=== PATIENT | male | born 1950 | race Caucasian/White ===

== ENCOUNTER → 2020-05-01 13:23 | Outpatient (BNVA) | payer MEDICARE, SELFPAY | PROVIDERS: PCP Internal Medicine; Visit Provider Internal Medicine | DX: I21.11 ST elevation (STEMI) myocardial infarction involving right coronary artery (principal); I25.10 Atherosclerotic heart disease of native coronary artery without angina pectoris; I48.0 Paroxysmal atrial fibrillation; I10 Essential (primary) hypertension | CPT/HCPCS: 93005; 99202 ==

== ENCOUNTER → 2020-05-30 09:24 | Outpatient (REF) | payer MEDICARE, SELFPAY ==
--- NOTE | 2020-05-30 09:31 | CA_ITS ---
Transthoracic Echocardiogram Patient (Last, First, Middle): Ambrocio Rooney, Gender: Male Date of : 1950 Age: 69 Procedure Date: 05/30/2020 Procedure Type: Transthoracic Echocardiogram Location: OP Height: 162.56 cm Weight: 61.69 kg BSA: 1.66 m2 Heart Rate: bpm BP: 172 / 75 mmHg Nurse Companion: VENTURA Referring MD: Edgar Butler MD Stock Receiver: Raz Lyon MD Symptoms: I21.11 - ST elevation (STEMI) myocardial infarction involving right coronary artery Study Quality: Fair ECG Rhythm: Sinus Conclusions: - Normal study Findings Left Ventricle Normal left ventricular size, thickness, and systolic function. The visually estimated ejection fraction is between 60-65%. Spectral Doppler is indicative of an impaired relaxation filling pattern. E/E prime ratio is <8, consistent with normal filling pressures. Evidence suggests grade I (mild) diastolic dysfunction. Right Ventricle Normal right ventricular cavity size and systolic function. Atria Both atria are normal in size. There is no evidence of interatrial shunt. Aortic Valve Normal aortic valve structure and function. There is no aortic valve stenosis. There is no aortic valve regurgitation. Mitral Valve Normal mitral valve structure and function. There is no mitral valve regurgitation. There is no mitral valve stenosis. Pulmonic Valve The pulmonic valve is likely normal. Tricuspid Valve Normal tricuspid valve structure. There is trace tricuspid valve regurgitation. The right ventricular systolic pressure is normal. The right ventricular systolic pressure is 27 mmHg. Normal right atrial pressure. There is no evidence of pulmonary hypertension. Great Vessels All visible segments of the aorta are normal in size. The pulmonary artery was not well visualized. Venous The inferior vena cava is normal in size and collapses greater than 50% with inspiration. Pericardium/Pleural There is no evidence of pericardial effusion. Prior Study Comparison No prior study available for comparison. Measurements M-Mode Liner Measurements Normals - Women/Men AOV Cusps: 2.10 1.5-2.6 cm/m2 2D Linear Measurements IVSd: 0.93 0.6-0.9/0.6-1.0 cm LVIDd: 4.32 3.9-5.3/4.2-5.9 cm LVIDd Index: 2.60 2.4-3.2/2.2-3.1 cm/m2 LVIDs: 2.62 2.0-3.6 cm LVPWd: 0.96 0.7-1.1 cm Ao Root: 2.60 2.1-3.5 cm LA Diam: 3.00 2.7-3.8/3.0-4.0 cm LAIDs Index: 1.81 1.5-2.3 cm/m2 LV Mass: 166.06 67-162/88-224 g LV Mass Index: 100.04 43-95/49-115 g/m2 LVOT Diam: 2.00 3.0+(-)1.3 cm 2D Systolic Function EF 4C: 63.80 >55% EF 2C: 59.60 >55% EF BiP: 61.70 >55% Mitral Valve MV Pk E: 0.49 MV PK A: 0.54 MV Decel Time: 444.00 E/A: 0.90 E'Lateral: 8.49 E'Medial: 5.77 E/E' Med: 8.50 E/E' Lat: 5.80 PHT: 130.00 MVA PHT: 1.69 Decel Terrell: 1.10 Aortic Valve AoV Pk Navjot: 1.29 AoV Pk Grad: 7.00 LVOT LVOT Pk Navjot: 0.91 LVOT Mn Navjot: 0.60 LVOT VTI: 0.18 LVOT Pk Grad: 3.00 LVOT Mn Grad: 2.00 LVOT Diam: 2.00 LVOT Area: 3.14 Diastolic Function MV Pk E: 0.49 MV Pk A: 0.54 E/A: 0.90 E'Medial: 5.77 E/E' Med: 8.50 E' Laterial: 8.49 E/E' Lat: 5.80 Tricuspid Valve TR Pk Navjot: 2.43 TR Pk Grad: 24.00 RA Press: 3.00 RVSP: 27.00 Great Vessels Aorta Ao Root-2D: 2.60 2.0-3.7 cm Ao Arch: 2.50 Pulmonary Valve PV Pk Navjot: 1.53 Peak PV Grad: 9.00 Updated in Other Vendor System with Status of Final Raz Lyon MD electronically signed on 05/30/2020 1:44:04 PM with status of Final
--- NOTE | 2020-05-30 09:31 | ECG_ITS ---
Hook-up date: 2020-05-30 10:45:00 Duration: 46:50:00 Test Indications: afib Medications: 09179 QRS complexes 135 Ventricular ectopics which represent <1 % of total QRS comp. 5 Supraventricular ectopics which represent <1 % of total QRS comp. * Paced QRS complexs which represent % of total QRS comp. VENTRICULAR ECTOPY 135 Isolated 0 Bigeminal Cycles 0 Couplets 0 Runs 0 Beats in Runs * Beats LONGEST at * BPM at :: -- * Beats FASTEST at * BPM at :: -- SUPRAVENTRICULAR ECTOPY 5 Isolated 0 Couplets 0 Runs 0 Beats in Runs * Beats LONGEST at * BPM at :: -- * Beats FASTEST at * BPM at :: -- HEART RATES 45 MIN at 00:40:55 2020-05-31 63 AVG 133 MAX at 21:13:00 2020-05-30 LONGEST RR 1.3920 secs at 00:40:56 2020-05-31 S-T LEVELS Channel 1 - 128 mm at 10:45:00 2020-05-30 - 128 mm at 10:45:00 2020-05-30 Channel 2 - 128 mm at 10:45:00 2020-05-30 - 128 mm at 10:45:00 2020-05-30 Channel 3 - 128 mm at 03:00:41 -- - 128 mm at 03:00:41 Underlying rhythm is sinus with an average rate of 63/min; About 45% of the time, ventricular rate <60/min; Rare premature ventricular contractions; No evidence of atrial fibrillation; Patient did not return diary Referred By: Cheko Vera Overread By: CHEKO VERA
== END ==
LOC: HO.CARD 09:24
PROVIDERS: Visit Provider Internal Medicine
DX: I21.11 ST elevation (STEMI) myocardial infarction involving right coronary artery (principal); I48.0 Paroxysmal atrial fibrillation
CPT/HCPCS: 93225; 93226; 93306

== ENCOUNTER → 2020-06-13 12:56 | Outpatient (BNVA) | payer MEDICARE, SELFPAY | PROVIDERS: PCP Internal Medicine; Visit Provider Internal Medicine | DX: I21.11 ST elevation (STEMI) myocardial infarction involving right coronary artery (principal); I25.10 Atherosclerotic heart disease of native coronary artery without angina pectoris; I48.0 Paroxysmal atrial fibrillation; I10 Essential (primary) hypertension | CPT/HCPCS: 99212 ==

== ENCOUNTER → 2020-12-12 12:31 | Outpatient (BNVA) | payer MEDICARE, MEDICAID, SELFPAY | PROVIDERS: PCP Internal Medicine Geriatric Medicine; Referring Provider Internal Medicine Geriatric Medicine; Visit Provider Internal Medicine | DX: I21.11 ST elevation (STEMI) myocardial infarction involving right coronary artery (principal); I25.10 Atherosclerotic heart disease of native coronary artery without angina pectoris; I48.0 Paroxysmal atrial fibrillation; I10 Essential (primary) hypertension | CPT/HCPCS: 99212 ==

== ENCOUNTER → 2021-06-18 14:23 | Outpatient (BNVA) | payer MEDICARE, MEDICAID, SELFPAY | PROVIDERS: PCP Internal Medicine Geriatric Medicine; Referring Provider Internal Medicine Geriatric Medicine; Visit Provider Internal Medicine | DX: I25.2 Old myocardial infarction (principal); I25.10 Atherosclerotic heart disease of native coronary artery without angina pectoris; I48.0 Paroxysmal atrial fibrillation; I10 Essential (primary) hypertension | CPT/HCPCS: 93005; 99212 ==

== ENCOUNTER → 2021-12-19 13:07 | Outpatient (BNVA) | payer MEDICARE, MEDICAID, SELFPAY | PROVIDERS: PCP Internal Medicine Geriatric Medicine; Referring Provider Internal Medicine Geriatric Medicine; Visit Provider Internal Medicine | DX: I25.10 Atherosclerotic heart disease of native coronary artery without angina pectoris (principal); I48.0 Paroxysmal atrial fibrillation; I10 Essential (primary) hypertension; Z79.01 Long term (current) use of anticoagulants; Z79.899 Other long term (current) drug therapy | CPT/HCPCS: 99212 ==

== ENCOUNTER → 2022-08-07 13:42 | Outpatient (BNVA) | payer MEDICARE, MEDICAID, SELFPAY | PROVIDERS: PCP Internal Medicine Geriatric Medicine; Referring Provider Internal Medicine Geriatric Medicine; Visit Provider Internal Medicine | DX: I25.10 Atherosclerotic heart disease of native coronary artery without angina pectoris (principal); I48.0 Paroxysmal atrial fibrillation; I10 Essential (primary) hypertension | CPT/HCPCS: 93005; 99212 ==

== ENCOUNTER 2022-11-20 11:45 | Outpatient (REF) | payer MEDICARE, MEDICAID, SELFPAY ==
[2022-11-20 14:02] LABS: Alanine Aminotransferase 32 U/L (0-40); Albumin Level 3.9 g/dL (3.5-5.0); Alkaline Phosphatase 58 U/L (39-117); Aspartate Amino Transferase 28 U/L (5-37); Bilirubin Direct 0.2 mg/dL (0.0-0.5); Bilirubin Total 0.6 mg/dL (0.0-1.0); Total Protein 7.4 g/dL (6.5-8.0)
[2022-11-20 14:05] LABS: Prostate Specific Antigen 0.97 ng/mL (<0.05-4.0)
== END 2022-11-20 11:46 | disposition home or self-care (01) ==
LOC: HO.HHCLNP 11:45
PROVIDERS: Visit Provider Registered Nurse
DX: Z00.00 Encounter for general adult medical examination without abnormal findings (principal)
CPT/HCPCS: 36415; 80076; 84153

== ENCOUNTER 2023-08-12 13:50 | Outpatient (AMB) | payer MEDICARE, MEDICAID, SELFPAY ==
[2023-08-12 14:22] VITALS: BP 130/62; PULSE 59; BMI 23.8
--- NOTE | 2023-08-12 14:22 | MHC.OFFVIS ---
Vital Signs 08/12/23 14:22 Height 5 ft 4 in Weight 138 lb 14.259 oz BMI 23.8 BP 130/62 Blood Pressure Location Lt brachial Position Sitting Pulse 59 Intake Visit Reasons: 1 yr f/up Learning Analyst Required: Yes Learning Analyst Name: [id number] Accompanied by: Self / Same As Patient Allergies No Known Allergies Allergy (Verified 08/07/22 14:32) Medication List - Last Reconciled 08/12/23 by Edgar Butler MD amlodipine 5 mg PO DAILY apixaban (Eliquis) 5 mg PO BID 90 days aspirin (Adult Aspirin Regimen) 81 mg PO DAILY atorvastatin 80 mg PO BEDTIME cholecalciferol (vitamin D3) 25 mcg PO DAILY lisinopril 40 mg PO QAM metoprolol succinate ER 50 mg PO DAILY omega-3 fatty acids (Fish Oil Concentrate) 1,000 mg PO BID HPI Comments Details: Ambrocio returns for follow-up regarding coronary disease. He has a history of hypertension, dyslipidemia. In feb 2020, he developed chest discomfort and left arm discomfort and diagnosed with inferior STEMI. Subsequently underwent cardiac catheterization and right coronary artery stenting. He seems to be doing well. No clinical symptoms like angina or shortness of breath or palpitations or in fact anything cardiac sounding. He states he is fairly active without any limitations. [facility] Medical History (Updated 05/01/20 @ 13:58 by Edgar Butler MD) Atherosclerotic cardiovascular disease Essential hypertension PAF (paroxysmal atrial fibrillation) ST elevation (STEMI) myocardial infarction involving right coronary artery Surgical History History of cardiac catheterization (~02/28/20) Family History Mother Hypertension Father No problems noted. Social History Patient Tobacco Use Status: Former Tobacco user Review of Systems Const Denies chills, Denies fatigue, Denies fever(s), Denies frequent falls, Denies weakness, Denies weight gain and Denies weight loss ENT Denies dizziness Card Denies chest pain, Denies leg edema, Denies lightheadedness, Denies palpitations, Denies dyspnea and Denies dyspnea on exertion Resp Denies cough, Denies dyspnea and Denies dyspnea on exertion GI Denies hematochezia Musc Denies abnormal gait, Denies muscle weakness, Denies numbness, Denies radiating pain into limb and Denies tingling Neuro Denies abnormal gait, Denies dizziness, Denies frequent falls, Denies numbness, Denies tingling and Denies weakness Endo Denies fatigue and Denies palpitations Physical Exam Vital Signs: Last Vital Signs Pulse 59 08/12/23 14:22 BP 130/62 08/12/23 14:22 BMI result Body Mass Index 23.8 Office Procedures EKG Details: EKG with sinus bradycardia, 59/Min; old inferior infarct; leftward axis; [place] [id number], Complete Assessment & Plan Assessment & Plan (1) Atherosclerotic cardiovascular disease: Code(s): I25.10 - Atherosclerotic heart disease of [place] coronary artery without angina pectoris Category: Medical Plan: Cardiac catheterization 2019 with 99% stenosis in the proximal RCA; status post stenting; otherwise mid LAD 30% stenosis; 1st diagonal ostial 90% stenosis but only supplying a small territory; distal LAD 30%. No anginal symptoms. Continue beta-blockers and statins. Last LDL 56 mg/dL. Triglycerides 162 mg/dL. (2) PAF (paroxysmal atrial fibrillation): Code(s): I48.0 - Paroxysmal atrial fibrillation Category: Medical Plan: Atrial fibrillation noted during hospitalization. Continue Eliquis. Will check with pharmacy about his meds but if he is taking both aspirin and Eliquis, then stop aspirin. (3) Essential hypertension: Code(s): I10 - Essential (primary) hypertension Category: Medical Plan: Listed to be on lisinopril/amlodipine. No changes. Again, will need to clarify with pharmacy directly as he can not confirm his meds clearly. Coding Level of Care Code Est Pt Level 4 (04232) Diagnoses Atherosclerotic cardiovascular disease I25.10 PAF (paroxysmal atrial fibrillation) I48.0 Essential hypertension I10 CPT Codes EKG - CPT: 57916-Satzqmkamxkaguvuw, Complete ([id number])
== END 2023-08-12 14:46 | disposition home or self-care (01) ==
PROVIDERS: Visit Provider Internal Medicine
DX: I25.10 Atherosclerotic heart disease of native coronary artery without angina pectoris (principal); I48.0 Paroxysmal atrial fibrillation; I10 Essential (primary) hypertension
CPT/HCPCS: 93010; 99214

== ENCOUNTER → 2023-08-12 13:50 | Outpatient (BNVA) | payer MEDICARE, MEDICAID, SELFPAY | PROVIDERS: Visit Provider Internal Medicine | DX: I25.10 Atherosclerotic heart disease of native coronary artery without angina pectoris (principal); I48.0 Paroxysmal atrial fibrillation; I10 Essential (primary) hypertension; Z79.01 Long term (current) use of anticoagulants; Z79.899 Other long term (current) drug therapy | CPT/HCPCS: 93005; 99212 ==

== ENCOUNTER 2024-04-13 09:33 | Outpatient (REF) | payer MEDICARE, MEDICAID, SELFPAY ==
[2024-04-13 11:42] LABS: MANUAL DIFF FLAG NO
[2024-04-13 11:44] LABS: Basophils Absolute Auto 0.1 X10*3/uL (0.0-0.2); Basophils Percent Auto 0.9 % (0-2); Eosinophils Absolute Auto 0.3 X10*3/uL (0.0-0.4); Eosinophils Percent Auto 3.1 % (0-4); Hematocrit 43.1 % (42.0-52.0); Hemoglobin 14.5 g/dl (14.0-18.0); Imm Gran Abs Auto 0.04 X10*3/uL (0.00-0.03); Imm Gran Pct Auto 0.4 % (0.0-0.4); Lymphocytes Percent Auto 32.1 % (20-40); Mean Corpuscular HGB Conc 33.6 g/dl (31.0-36.0); Mean Corpuscular Volume 92.1 fL (80.0-98.0); Mean Platelet Volume 9.6 fL (9.4-12.4); Monocytes Absolute Auto 0.6 X10*3/uL (0.1-1.2); Monocytes Percent Auto 6.9 % (2-11); Neutrophils Absolute Auto 5.2 x10*3/uL (2.0-8.3); Neutrophils Percent Auto 56.6 % (45-73); Platelet Count 321 X10*3/uL (160-400); Red Blood Count 4.68 X10*6/uL (4.60-5.80); Red Cell Distribution Width 13.6 % (11.0-16.0); White Blood Count 9.3 X10*3/uL (4.8-10.8)
[2024-04-13 12:05] LABS: Estimated Average Glucose 105 mg/dL; Hemoglobin A1C 132.8615 umol/L; Hemoglobin A1c % 5.3 % (<6.0); Total Hemoglobin (HGBA1C) 3804.2104 umol/L
[2024-04-13 12:15] LABS: Alanine Aminotransferase 19 U/L (0-40); Albumin Level 3.7 g/dL (3.5-5.0); Anion Gap 9 (12-20); Aspartate Amino Transferase 32 U/L (5-37); Bilirubin Total 0.9 mg/dL (0.0-1.0); Blood Urea Nitrogen 14 mg/dL (9-16); Calcium 9.1 mg/dL (8.4-10.2); Carbon Dioxide 28 mmol/L (22-29); Chloride 107 mmol/L (96-108); Cholesterol 118 mg/dL (<200); Estimated Glomerular Filt Rate > 60; Glucose Random 94 mg/dL (60-115); HDL Cholesterol 34 mg/dL (>40); LDL Cholesterol Calculated 59 mg/dL (<100); Potassium 4.3 mmol/L (3.3-5.1); Sodium 140 mmol/L (135-145); Total Protein 7.3 g/dL (6.5-8.0); Triglycerides 125 mg/dL (<150)
[2024-04-13 12:39] LABS: TSH reflex Free T4 1.62 uIU/mL (0.32-4.0); Vitamin D 25-OH Total 16.6 ng/mL (>30)
[2024-04-13 12:44] LABS: Alkaline Phosphatase 63 U/L (39-117)
[2024-04-13 12:46] LABS: HIV AB/AG Nonreactive (Nonreactive); HIV Num 1 0.05 S/CO (0.00-0.99); ~Hepatitis C Antibody Nonreactive (Nonreactive)
== END 2024-04-13 09:34 | disposition home or self-care (01) ==
LOC: HO.HHCL 09:33
PROVIDERS: Visit Provider Internal Medicine
DX: I25.10 Atherosclerotic heart disease of native coronary artery without angina pectoris (principal)
CPT/HCPCS: 36415; 80053; 80061; 82306; 83036; 84443; 85025; 86803; 87389

== ENCOUNTER 2024-09-23 13:55 | Outpatient (AMB) | payer MEDICARE, MEDICAID, SELFPAY ==
--- NOTE | 2024-09-23 14:02 | A.OFFVIS_ITS ---
Vital Signs 09/23/24 14:07 Height 5 ft 4 in Weight 132 lb 4.438 oz BMI 22.7 BP 122/70 Blood Pressure Location Lt brachial Position Sitting Pulse 59 Pulse Source Monitor Intake Visit Reasons: 1 year f/u r/s 08-11-24 Dimension Quarry Supervisor Required: Yes Dimension Quarry Supervisor Name: ASHLEY [phone] Allergies No Known Allergies Allergy (Verified 08/07/22 14:32) Medication List - Last Reconciled 09/23/24 by Edgar Butler MD amlodipine 5 mg PO DAILY apixaban (Eliquis) 5 mg PO BID 90 days aspirin 81 mg PO DAILY atorvastatin 80 mg PO BEDTIME cholecalciferol (vitamin D3) 25 mcg PO DAILY lisinopril 40 mg PO QAM metoprolol succinate ER 50 mg PO DAILY omega-3 fatty acids (Fish Oil Concentrate) 1,000 mg PO BID HPI Comments Details: Ambrocio returns for follow-up regarding coronary disease. He has a history of hypertension, dyslipidemia. In 2019, he developed chest discomfort and left arm discomfort and diagnosed with inferior STEMI. Subsequently underwent cardiac catheterization and right coronary artery stenting. Since last seen, he states he is doing good. No new concerns. No angina. [facility] Medical History (Updated 05/01/20 @ 13:58 by Edgar Butler MD) Atherosclerotic cardiovascular disease Essential hypertension PAF (paroxysmal atrial fibrillation) ST elevation (STEMI) myocardial infarction involving right coronary artery Surgical History History of cardiac catheterization (~02/28/20) Family History Mother Hypertension Father No problems noted. Social History Patient Tobacco Use Status: Former Tobacco user Review of Systems Const Denies weakness ENT Denies dizziness Card Denies chest pain, Denies chest pain with activity, Denies syncope, Denies rapid heart rate, Denies pedal edema, Denies edema, Denies leg edema, Denies lightheadedness, Denies palpitations, Denies dyspnea, Denies dyspnea on exertion and Denies orthopnea Resp Denies cough, Denies dyspnea and Denies dyspnea on exertion GI Denies hematochezia and Denies change in stool character Musc Denies abnormal gait, Denies muscle cramps, Denies muscle weakness, Denies numbness, Denies radiating pain into limb and Denies tingling Neuro Denies abnormal gait, Denies dizziness, Denies syncope, Denies numbness, Denies tingling and Denies weakness Endo Denies palpitations Physical Exam Vital Signs: Last Vital Signs Pulse 59 09/23/24 14:07 BP 122/70 09/23/24 14:07 BMI result Body Mass Index 22.7 Const General: comfortable and no acute distress Orientation/consciousness: patient oriented x3 HEENT Other: Unremarkable Head: Yes normal to inspection Neck Neck: Yes normal visual inspection Chest Chest palpation & inspection: normal inspection of the chest Resp Auscultation: clear to auscultation bilaterally Cardio Palpation: normal PMI Heart sounds: S1 normal heart sound present, S2 normal heart sound present, no gallops, no murmurs and no rubs GI Palpation (GI): Soft to palpation Back/Spine/Pelvis Other: unremarkable Skin General skin exam: no rashes or lesions noted Neuro General: patient oriented x3 Extrem General: Yes normal to inspection Psych Mental Status: mental status grossly normal Office Procedures EKG Details: EKG with underlying sinus rhythm at 59/Min; no ischemic changes; [place]. [id number]-[id number], Complete Assessment & Plan Assessment & Plan (1) Atherosclerotic cardiovascular disease: Code(s): I25.10 - Atherosclerotic heart disease of [place] coronary artery without angina pectoris Category: Medical Plan: Cardiac catheterization 2019 with 99% stenosis in the proximal RCA; status post stenting; otherwise mid LAD 30% stenosis; 1st diagonal ostial 90% stenosis but only supplying a small territory; distal LAD 30%. No anginal symptoms. Continue beta-blockers and statins. Last LDL 59 mg/dL. (2) PAF (paroxysmal atrial fibrillation): Code(s): I48.0 - Paroxysmal atrial fibrillation Category: Medical Plan: Atrial fibrillation noted during hospitalization. He remains on Eliquis. He can stop aspirin. (3) Essential hypertension: Code(s): I10 - Essential (primary) hypertension Category: Medical Plan: Listed to be on lisinopril/amlodipine. No changes. Coding Level of Care Code Est Pt Level 4 (44821) Complex EM visit Add On G2211 Diagnoses Atherosclerotic cardiovascular disease I25.10 PAF (paroxysmal atrial fibrillation) I48.0 Essential hypertension I10 CPT Codes EKG - CPT: 70219-[id number], Complete ([id number])
[2024-09-23 14:07] VITALS: BP 122/70; PULSE 59; BMI 22.7
--- OUTSIDE RECORDS SUMMARY | 2024-09-23 15:10 | XMS_ITS | Clinical Summary ---
Author Organization [employer] Address [address] [place] [address] Care Team Providers Care Box Annealer Name Role Phone Mandi Rojas MD Primary Care Provide r Allergies No known active allergies Medications acetaminophen (Tylenol) 500 MG tablet Take 1 tablet by mouth every 6 (six) hours. 12/19/19 Active Eliquis 5 MG tablet TAKE 1 TABLET BY MOUTH TWICE DAILY IN THE MORNING AND AT BEDTIME 02/01/20 22 Active melatonin 5 MG tabletIndications: Insomnia, unspecified type TAKE 2 TABLETS BY MOUTH EVERY DAY AT BEDTIME NEEDED FOR SLEEP 180 tablet 1 05/17/19 25 Active lisinopril 40 MG tabletIndications: Primary hypertension TAKE 1 TABLET BY MOUTH EVERY MORNING 90 tablet 1 06/24/19 25 Active metoprolol succinate XL (Toprol-XL) 50 MG 24 hr tabletIndications: Primary hypertension TAKE 1 TABLET BY MOUTH EVERY MORNING 90 tablet 1 06/24/19 25 Active amLODIPine (Norvasc) 5 MG tabletIndications: Hypertension, unspecified type TAKE 1 TABLET BY MOUTH AT BEDTIME 90 tablet 1 08/10/19 25 Active cyanocobalamin (Vitamin B-12) 1000 MCG tablet TAKE 1 TABLET BY MOUTH EVERY MORNING 90 tablet 1 08/10/19 25 Active atorvastatin (Lipitor) 80 MG tabletIndications: Mixed hyperlipidemia TAKE 1 TABLET BY MOUTH AT BEDTIME 90 tablet 1 08/10/19 25 Active diphenhydrAMINE (Sarah-Dryl) 25 MG tablet TAKE 1 TABLET BY MOUTH AT BEDTIME NEEDED FOR ITCHING 30 tablet 3 09/14/19 25 Active diphenhydrAMINE (BENADryl) 25 MG tablet TAKE 1 TABLET BY MOUTH AT BEDTIME IF NEEDED FOR ITCHING 30 tablet 3 11/27/19 24 025 Discontinued Active Problems Problem Noted Date Diagnosed Date Primary hypertension 04/08/2024 Assessment & Plan (04/08/2024 4:31 PM EST): I advised: - Aerobic exercise to reduce BP. Initial goal of 30 min walk 3-5x/week. Increase as tolerated. - low-sodium diet (goal: <2g/day) and heart healthy diet such as DASH to reduce BP and prevent ASCVD. - Home BP monitoring 1-2 x day with goal of <140/90. - Seek immediate medical attention for chest pain, palpitations, SOB, syncope, or sudden changes in mental status. - Do not change or discontinue current prescriptions without first consulting health care provider Periodontal disease 06/07/2022 Dental calculus 06/07/2022 Health care maintenance 04/09/2022 Overview (01/08/2023): Routine Health Maintenance: Immunizations: Up to date HIV: Nonreactive 08/26/2012. Hep C: Nonreactive 08/26/2012 Hepatitis B: pending 11/14/22 BMD: >age 65 Colonoscopy: 12/09/2017 excisional polypectomy x 2; 2+ internal hemorrhoids. Repeat 3 years d/t poor visualization of the L side of the colon. Unknown if repeated in 2020. Will discuss next visit AAA: No abdominal aortic aneurysm. Maximal transverse diameter is 2.4 cm. 04/10/2017 PSA: WNL 11/14/22. Lung cancer: Quit 13 years ago. 7 years smoking hx. Does not meet criteria. Eye: No vision concerns Dental: 3 months ago 2022 Assessment & Plan (04/09/2022 1:48 PM EST): AAA screenin04/10/2017 WNL Lung cancer screening: Does not meet criteria Colon Cancer: done in 2017, results; polyps, and bowel was not prepared well. 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 Last seen a month ago and has another appt coming up this month Assessment & Plan (04/08/2024 4:31 PM EST): C/e current medication regimen F/u with cardiology has an appointment 08/11/24 Seborrheic keratosis 04/09/2022 Paroxysmal atrial fibrillation 03/11/2020 Assessment & Plan (04/08/2024 4:31 PM EST): C/w metoprolol 50mg daily and elequis 5mg BID High blood pressure 08/24/2013 Overview (12/18/2022): Managing with amlodipine 5 mg daily + Lisinopril 40 mg daily + Metoprolol 50 mg daily (for arrhythmia but also may assist BP) Medbox pt Assessment & Plan (12/18/2022 4:20 PM EDT): BP stable today Continue medication regimen F/u PRN Insomnia 12/10/2011 Overview (12/18/2022): Pt reports sleeping 6 hours a day. With a medication in the past he slept 8 hours a day. Benadryl did not improve pt sleep Assessment & Plan (12/18/2022 4:18 PM EDT): Will rx melatonin 10 mg for sleep Educated take 1-2 hours before desired bedtime Notify clinic if melatonin does not improve sleep F/u PRN with new PCP Microscopic hematuria 11/19/2011 Mixed hyperlipidemia 07/29/2005 Overview (12/18/2022): Lipid panel WNL 04/10/22 HDL slightly low Treating Atorvastatin 80 mg daily Assessment & Plan (12/18/2022 4:24 PM EDT): Continue atorvastatin Continue diet and exercise Check lipid panel annually F/u PRN Encounters Date Type Department Care Team Description 09/12/2024 Refill [facility] [address] [place] [address] Mandi Rojas MD 08/09/2024 Refill [facility] [address] [place] [address] Mandi Rojas MD Hypertension, unspecified type; Mixed hyperlipidemia 07/08/2024 Telephone [facility] [address] [place] [address] Mandi Rojas MD No Show 06/29/2024 Patient Outreach [facility] [address], [place] [phone] Mandi Rojas MD Pre-visit Planning ((Unable to reach for PVP screening, LVM)) from Last 3 Months Immunizations Immunization Administration Dates Next Due Hep A, Adult 12/03/2012,05/13/2012 Hep B, adult 07/31/2006,01/30/2006,12/25/2005 Influenza High-dose Quadriva lent Preservative Free 01/22/2023,01/17/2022,03/01/2020,01/12 Influenza Injectable Quadriv alant Preservative Free IIV4 MDCK 01/31/2021 Influenza injectable quadriv alent IIV4 with preservative 01/21/2017,01/23/2015 Influenza injectable quadriv alent preservative free 01/01/2019,01/30/2016 Influenza, High Dose Seasona l, Preservative Free 12/30/2023,01/13/2018 Influenza, IIV3, injectable 01/24/2014, 2 Influenza, Split (incl. karan fied surface antigen) 01/25/2013 Pfizer Covid-19 Vaccine 12+ 08/23/2021,1 04/09/2020,06/27/2020,06/06 Pfizer Covid-19 Vaccine 12+ toyin-sucrose (Carrington Cap) 08/23/2021 Pneumococcal Conjugate PCV 13 04/05/2019 Pneumococcal Polysaccharide PPSV23 02/05/2021, Tdap 10/22/2021,05/30/2011 Zoster, Recombinant 05/25/2020,03/22/2020 Zoster, live 05/13/2012 Social History Tobacco Use Types Packs/Day Years Used Date Smoking Tobacco: Former Cigarettes 0.5 14 1 996 - 2010 Smokeless Tobacco: Never Tobacco Cessation:Counseling Given: Not Answered Alcohol Use Standard Drinks/Week Comments Not Currently 0 (1 standard drink = 0.6 oz pur e alcohol) Depression Answer Date Recorded Patient Health Questionnaire-9 Score 3 04/09/2022 Housing Stability Answer Date Recorded What is your housing situation today? I have boogie hu 03/29/[address] you li ve. Do you have problems with any of the following? None of the above 03/29/2024 Food Insecurity Answer Date Recorded Within the past 12 months, y ou worried that your food would run out before you got money to buy more: Never True 03/29/2024 Within the past 12 months,th e food you bought just didn't last and you didn't have enough money to get more: Never True Transportation Answer Date Recorded In the past 12 months, has l ack of transportation kept you from medical appts, meetings, work or from getting things needed for daily living? No 03/29/2024 Utilities Answer Date Recorded In the past 12 months, has t he electric, gas, oil or water company threatened to shut off services in your home? No 03/29/2024 Depression Answer Date Recorded Patient Health Questionnaire-2 Score 0 04/09/2022 Internet Access Answer Date Recorded Internet Access Q1 No 03/29/2024 Internet Access Q2 I do not want or need it 03/08 Sex and Gender Information Value Date Recorded Sex Assigned at Male 02/04/2022 10:18 AM EDT Legal Sex Male 10:18 AM EDT Gender Identity Male 02/04/2022 10:18 AM EDT Sexual Orientation Straight 02/04/2022 10 :18 AM EDT Last Filed Vital Signs Vital Sign Reading Time Taken Comments Blood Pressure 143/73 04/08/2024 1:59 PM EST Pulse 61 04/08/2024 1:59 PM EST Temperature 36.4 C (97.6 F) 04/08/2024 1:59 PM EST Respiratory Rate 16 04/08/2024 1:59 PM EST Oxygen Saturation 96% 04/08/2024 1:59 PM EST Inhaled Oxygen Concentration - - Weight 63.5 kg (140 lb) 04/08/2024 1:59 PM EST Height 157.5 cm (5' 2 ) 04/08/2024 1:59 PM EST Body Mass Index 25.61 04/08/2024 1:59 PM EST Plan of Treatment Upcoming Encounters Date Type Department Care Team (Late st Contact Info) Description 10/07/2024 1:00 PM EDT Office Visit [facility] [address] [place] [address] Mandi Rojas MD [address] [place] [address] Health Maintenance Due Date Last Done Comments Dental Prophylaxis 1950 Dental X-Ray: Bitewings 1950 Dental X-Ray: Full Mouth 1950 Alcohol/Substance Use Screening 1960 Dental Oral Exam 11/11/2022 05/13/2022 Depression Screening 04/09/2023 04/09/2022, 04/09/19 23 RSV Patients and Patients Aged 60 years or older (1 - 1-dose 75+ series) 08/19/2023 COVID-19 Vaccine (2023- season) 2023 08/23/2021, 08/23/2021, 02/07/2021, Additional history exists SDOH Screening 03/29/2025 03/29/2024 Tobacco Screening 04/08/2025 04/08/2024 Lipid Panel 04/13/2029 04/13/2024, 07/2022, 07/19/2021, Additional history exists DTaP/Tdap/Td Vaccines (3 - Td or Tdap) 10/23/2031 10/22/2021, 05/30/2011 Hepatitis B Vaccines Completed 07/31/2006, 01/30/2006, 12/25/2005 Hepatitis A Vaccines Aged Out 12/03/2012, 05/13/19 13 No longer eligible based on patient's age to complete this topic Colonoscopy Discontinued 12/09/2017 Colorectal Cancer Screening Discontinued Zoster Vaccines Completed 05/25/2020, 03/07, 05/13/2012 Pneumococcal Vaccine: 50+ Years Completed 02/05/2021, 04/05/2019, 06/11/2012 Influenza Vaccine Completed 12/30/2023, , 01/17/2022, Additional history exists Hepatitis C Screening Completed 04/13/2024 CT Colonography Discontinued FIT DNA/Cologuard Discontinued FIT Discontinued FOBT Discontinued HIB Vaccines Aged Out No longer eligi ble based on patient's age to complete this topic HPV Vaccines Aged Out No longer eligi ble based on patient's age to complete this topic IPV Vaccines Aged Out No longer eligi ble based on patient's age to complete this topic Meningococcal B Vaccine Aged Out No l onger eligible based on patient's age to complete this topic Meningococcal Vaccine Aged Out No ross slim eligible based on patient's age to complete this topic RSV under 20 months Aged Out No longe r eligible based on patient's age to complete this topic Rotavirus Vaccines Aged Out No longer eligible based on patient's age to complete this topic Sigmoidoscopy Discontinued Procedures Procedure Name Priority Date/Time Associated Diagnosis Comments HEPATITIS C AB W/REFL TO HCV RNA, QN, PCR Routine 04/13/2024 9:40 AM EST Coronary artery disease involving platinum coronary artery of platinum heart, unspecified whether angina present LIPID PANEL, STANDARD Routine 04/13/2024 9:40 AM EST Coronary artery disease involving platinum coronary artery of platinum heart, unspecified whether angina present COMPREHENSIVE ORAL EVALUATION - NEW OR ESTABLISHED PATIENT Routine 05/13/2022 8:00 AM EST Periodontal disease HM COLONOSCOPY Routine 12/09/2017 from Last 3 Months or Most Recently Relevant to Health Maintenance Results * Hepatitis C Antibody with Reflex to HCV, RNA, Quantitative, Real-Time PCR (04/13/2024 9:40 AM EST) Hepatitis C Antibody Nonreactive Nonreactive [facility] Comment:Antibodies to HCV no t detected; does not exclude early acuteHCV infection. Blood Venous blood specimen / Unknown 04/13/2024 9:40 AM EST 04/13/2024 11:39 AM EST us Mandi Finley MD LAB BLOOD ORDERABLES Final Result [facility] [address] [place] [phone] * (ABNORMAL) Lipid Panel, Standard (04/13/2024 9:40 AM EST) Triglycerides 125 <150 mg/dL [facility] Comment:Desirable Triglyceri de: less than 150 mg/dLBorderline High Triglyceride 150-199 mg/dLHigh Triglyceride: 200-499 mg/dLVery High Triglyceride: greater than or equal to 5OO mg/dL Cholesterol 118 <200 mg/dL [facility] Comment:Desirable Cholestero l: less than 200 mg/dLBorderline High Cholesterol: 200-239 mg/dLHigh Cholesterol: greater than 239 mg/dL LDL Cholesterol Calculated 59 <100 mg/dL [facility] Comment:Desirable LDL: less than 100 mg/dLNear Optimal/Above Optimal LDL: 110- 129 mg/dLBorderline High LDL: 130-159 mg/dLHigh LDL: 160-189 mg/dLVery High LDL: greater than or equal to 190 mg/dL HDL Cholesterol 34(L) >40 mg/dL [facility] Comment:Desirable HDL: great er than 40 mg/dL Note: This HDL assay may give artificially low results in patients with liver disease. Blood Venous blood specimen / Unknown 04/13/2024 9:40 AM EST 04/13/2024 11:39 AM EST us Mandi Finley MD LAB BLOOD ORDERABLES Final Result [facility] [address] [place] [address] [phone] * (ABNORMAL) Colonoscopy (12/09/2017) Colonoscopy Abnormal(A ) Normal us Not In System Provider HEALTH MAINTENANCE Final Result from Last 3 Months or Most Recently Relevant to Health Maintenance Insurance [address] [place], [place] [address] Care Teams Box Annealer Relationship Specialty Start Date End Date Mandi Rojas MD [address] [place] [phone] PCP - General Internal Medicine 01/14/23
== END 2024-09-23 14:26 | disposition home or self-care (01) ==
PROVIDERS: PCP Internal Medicine Geriatric Medicine; Visit Provider Internal Medicine
DX: I25.10 Atherosclerotic heart disease of native coronary artery without angina pectoris (principal); I48.0 Paroxysmal atrial fibrillation; I10 Essential (primary) hypertension
CPT/HCPCS: 93010; 99214; G2211

== ENCOUNTER → 2024-09-23 13:55 | Outpatient (BNVA) | payer OTHER, SELFPAY | PROVIDERS: PCP Internal Medicine Geriatric Medicine; Visit Provider Internal Medicine | DX: I25.10 Atherosclerotic heart disease of native coronary artery without angina pectoris (principal); I48.0 Paroxysmal atrial fibrillation; I10 Essential (primary) hypertension; R00.1 Bradycardia, unspecified | CPT/HCPCS: 93005; 99212 ==

== ENCOUNTER → 2024-11-30 09:18 | Outpatient (REF) | payer OTHER, SELFPAY ==
--- NOTE | 2024-11-30 09:36 | CA_ITS ---
Transthoracic Echocardiogram Patient (Last, First, Middle): Ambrocio Rooney, Gender: M Date of : 1950 Age: 74 Procedure Date: 11/30/2024 Procedure Type: Transthoracic Echocardiogram Location: OP Height: 162.56 cm Weight: 59.88 kg BSA: 1.64 m2 Heart Rate: bpm BP: 122 / 70 mmHg Special Needs Teacher: ADAN Referring MD: Mandi Finley MD Symptoms: SOB R06.02 Study Quality: Adequate ECG Rhythm: Sinus Conclusions: - The left ventricular systolic function is normal. The calculated ejection fraction is 66% by biplane method. - No obvious valvular pathology seen on this study. Findings Left Ventricle Normal left ventricular cavity size. There is normal left ventricular wall thickness. The left ventricular systolic function is normal. The calculated ejection fraction is 66% by biplane method. There is no evidence of regional wall motion abnormalities. Evidence suggests grade I (mild) diastolic dysfunction. Right Ventricle Normal right ventricular cavity size and systolic function. Atria Both atria are normal in size. Aortic Valve There is a normal trileaflet aortic valve. There is no aortic valve stenosis. There is no aortic valve regurgitation. Mitral Valve The mitral valve appears normal. There is trace mitral valve regurgitation. There is no mitral valve stenosis. Pulmonic Valve The pulmonic valve is likely normal. Tricuspid Valve There is mild tricuspid valve regurgitation. There is no evidence of pulmonary hypertension. Great Vessels The asc aorta is normal in size. Small plaque is seen in the sinuses of Valsalva. Venous The inferior vena cava is normal in size and collapses greater than 50% with inspiration. Pericardium/Pleural There is no evidence of pericardial effusion. Prior Study Comparison No significant change compared to prior study dated: 05/30/2020. Recommendations, Care & Conclusions No obvious valvular pathology seen on this study. Measurements 2D Linear Measurements IVSd: 0.92 0.6-0.9/0.6-1.0 cm LVIDd: 4.70 3.9-5.3/4.2-5.9 cm LVIDd Index: 2.87 2.4-3.2/2.2-3.1 cm/m2 LVIDs: 2.94 2.0-3.6 cm LVPWd: 0.85 0.7-1.1 cm LA Diam: 3.20 2.7-3.8/3.0-4.0 cm LAIDs Index: 1.95 1.5-2.3 cm/m2 LV Mass: 173.57 67-162/88-224 g LV Mass Index: 105.83 43-95/49-115 g/m2 LVOT Diam: 2.00 3.0+(-)1.3 cm 2D Systolic Function EF 4C: 66.80 >55% EF 2C: 64.70 >55% EF BiP: 65.90 >55% Mitral Valve MV Pk E: 0.57 MV PK A: 0.71 MV Decel Time: 251.00 E/A: 0.80 E'Lateral: 6.42 E'Medial: 4.57 E/E' Med: 12.40 E/E' Lat: 8.80 PHT: 73.00 MVA PHT: 3.01 Decel Worth: 2.25 Aortic Valve AoV Pk Navjot: 1.23 AoV Mn Navjot: 0.83 AoV VTI: 0.29 AoV Pk Grad: 6.00 Aov Mn Grad: 3.00 KARLA Cont.VTI: 2.69 LVOT LVOT Pk Navjot: 1.10 LVOT Mn Navjot: 0.63 LVOT VTI: 0.25 LVOT Pk Grad: 5.00 LVOT Mn Grad: 2.00 LVOT Diam: 2.00 LVOT Area: 3.14 Diastolic Function MV Pk E: 0.57 MV Pk A: 0.71 E/A: 0.80 E'Medial: 4.57 E/E' Med: 12.40 E' Laterial: 6.42 E/E' Lat: 8.80 Right Ventricle TAPSE (mm): 26.00 TVS' Navjot: 10.00 Tricuspid Valve TR Pk Navjot: 2.54 TR Pk Grad: 26.00 RA Press: 3.00 RVSP: 29.00 Great Vessels Aorta Sinus of Valsalva: 3.01 2.0-3.5 cm Ao Asc: 3.60 2.1-3.4 cm Pulmonary Veins Pulm Vein S/D 1.30 Updated in Other Vendor System with Status of Final Edgar Butler MD electronically signed on 12/01/2024 12:47:27 PM with status of Final
--- OUTSIDE RECORDS SUMMARY | 2024-11-30 09:44 | XMS_ITS | Encounter Summary ---
Author Organization [email or web address] Address [address] [facility] [address] [place] [address] Care Team Providers Care Lifestyle Consultant Name Role Phone Samia Ray POST SPLITTER Primary Care Provider Mandi Zayas MD Primary Care Provide r Encounter Details Date Type Department Care Team (Late st Contact Info) Description 05/16/2022 Abstract [facility] [address] [place] [address] Noah Oglesby DDS [address], [place] [phone] Social History Tobacco Use Types Packs/Day Years Used Date Smoking Tobacco: Former Cigarettes Q uit: 2009 Smokeless Tobacco: Never Alcohol Use Standard Drinks/Week Comments Not Currently 0 (1 standard drink = 0.6 oz pur e alcohol) Depression Answer Date Recorded Patient Health Questionnaire-9 Score 3 04/09/2022 Depression Answer Date Recorded Patient Health Questionnaire-2 Score 0 04/09/2022 Sex and Gender Information Value Date Recorded Sex Assigned at Male 02/04/2022 10:18 AM EDT Legal Sex Male 10:18 AM EDT Gender Identity Male 02/04/2022 10:18 AM EDT Sexual Orientation Straight 02/04/2022 10 :18 AM EDT COVID-19 Exposure Response Date Recorded In the last 10 days, have yo u been in contact with someone who was confirmed or suspected to have Coronavirus/COVID-19? No / Unsure 05/13/2022 7:49 AM EST documented as of this encounter Plan of Treatment Not on file documented as of this encounter Visit Diagnoses Not on filedocumented in this encounter Additional Health Concerns Assessment Noted Time PHQ-9 Depression Total Score: 3 04/09/19 1:11 PM EST documented as of this encounter Care Teams Lifestyle Consultant Relationship Specialty Start Date End Date Samia Ray FNP PCP - General Family Medicine 04/09/22 01/13/23 Mandi Rojas MD [address] [place] [address] PCP - General Internal Medicine 01/14/23 documented as of this encounter
--- OUTSIDE RECORDS SUMMARY | 2024-11-30 09:44 | XMS_ITS | Clinical Summary ---
Author Organization [employer] Address [address] [facility] [address] [place] [address] Care Team Providers Care Probate Judge Name Role Phone Mandi Rojas MD Primary Care Provide r Allergies No known active allergies Medications acetaminophen (Tylenol) 500 MG tablet Take 1 tablet by mouth every 6 (six) hours. 12/19/19 22 Active Eliquis 5 MG tablet TAKE 1 TABLET BY MOUTH TWICE DAILY IN THE MORNING AND AT BEDTIME 02/01/20 22 Active lisinopril 40 MG tabletIndications :Primary hypertension TAKE 1 TABLET BY MOUTH EVERY MORNING 90 tablet 1 06/24/19 25 Active metoprolol succinate XL (Toprol-XL) 50 MG 24 hr tabletIndications :Primary hypertension TAKE 1 TABLET BY MOUTH EVERY MORNING 90 tablet 1 06/24/19 25 Active amLODIPine (Norvasc) 5 MG tabletIndications :Hypertension, unspecified type TAKE 1 TABLET BY MOUTH AT BEDTIME 90 tablet 1 08/10/19 25 Active cyanocobalamin (Vitamin B-12) 1000 MCG tablet TAKE 1 TABLET BY MOUTH EVERY MORNING 90 tablet 1 08/10/19 25 Active atorvastatin (Lipitor) 80 MG tabletIndications :Mixed hyperlipidemia TAKE 1 TABLET BY MOUTH AT BEDTIME 90 tablet 1 08/10/19 25 Active diphenhydrAMINE (Sarah-Dryl) 25 MG tablet TAKE 1 TABLET BY MOUTH AT BEDTIME NEEDED FOR ITCHING 30 tablet 3 09/14/19 25 Active triamcinolone (Kenalog) 0.1 % creamIndications: Seborrheic keratosis Apply topically if needed in the morning and at bedtime (pain and swelling). 30 g 10/08/19 25 Active melatonin 5 MG tabletIndications :Insomnia, unspecified type TAKE 2 TABLETS BY MOUTH EVERY DAY AT BEDTIME NEEDED FOR SLEEP 180 tablet 1 11/12/19 25 Active melatonin 5 MG tabletIndications :Insomnia, unspecified type TAKE 2 TABLETS BY MOUTH EVERY DAY AT BEDTIME NEEDED FOR SLEEP 180 tablet 1 05/17/19 25 025 Discontinued Active Problems Problem Noted Date Diagnosed Date SOB (shortness of breath) on exertion 10/07/2024 Assessment & Plan (10/07/2024 4:27 PM EDT): Echocardiogram ordered, patient will be contacted with results Primary hypertension 04/08/2024 Assessment & Plan (10/07/2024 4:27 PM EDT): I advised: - Aerobic exercise to reduce [...] prescriptions without first consulting health care provider Assessment & Plan (04/08/2024 4:31 PM EST): [...] Hep C: Nonreactive 08/26/2012 Hepatitis B: pending 08/10/23 BMD: >age 65 Colonoscopy: 12/09/2017 excisional polypectomy [...] not meet criteria Colon Cancer: done in 2018, results; polyps, and bowel was not prepared well. repeat Colonoscopy in 2020 Coronary artery disease involving [place] coronar y artery 04/09/2022 Overview (12/18/2022): had a STEMI; stent placement 02/28/20 followed by cardiology. Last seen a month ago and has another appt coming up this month Assessment & Plan (10/07/2024 4:27 PM EDT): Continue to follow with cardiology Assessment & Plan (04/08/2024 4:31 PM EST): [...] Encounters Date Type Department Care Team Description 11/11/2024 Refill [facility] [address] [place] [address] Mandi Rojas MD Insomnia, unspecified type 10/07/2024 1:00 PM EDT Office Visit [facility] [address] [place] [phone] Mandi Rojas MD SOB (shortness of breath) on exertion; Seborrheic keratosis; Coronary artery disease involving [place] coronary artery of [place] heart, unspecified whether angina present; Primary hypertension 10/07/2024 Travel 10/06/2024 Telephone [facility] [address] [place] [address] [phone] Mandi Rojas MD Chart Prep 09/30/2024 Patient Outreach [facility] [address] [place], [place] [phone] Mandi Rojas MD Pre-visit Planning (SDOH unable to reach LVM) 09/12/2024 Refill [facility] [address] [place] [address] Mandi Rojas MD from Last 3 Months Immunizations Immunization Administration [...] Cigarettes 0.5 14 1 996 - 2010 Passive Smoke Exposure: Past Smokeless Tobacco: Never Tobacco Cessation:Counseling Given: Not Answered Alcohol Use Standard Drinks/Week Comments Not Currently 0 (1 standard drink = 0.6 oz pur e alcohol) Depression Answer Date Recorded Patient Health Questionnaire-9 Score 0 10/07/2024 Patient Health Questionnaire-9 Score 0 10/07/2024 Last PHQ-9: Questionnaire Data Not on file 0 10/07/2024 Housing Stability Answer Date Recorded What is [...] Date Recorded Patient Health Questionnaire-2 Score 0 10/07/2024 Internet Access Answer Date Recorded Internet Access [...] Sign Reading Time Taken Comments Blood Pressure 139/86 10/07/2024 1:03 PM EDT Pulse 62 10/07/2024 1:03 PM EDT Temperature 36.1 C (97 F) 10/07/2024 1:03 PM EDT Respiratory Rate 16 10/07/2024 1:03 PM EDT Oxygen Saturation 95% 10/07/2024 1:03 PM EDT Inhaled Oxygen Concentration - - Weight 61.6 kg (135 lb 12.8 oz) 10/07/2024 1:03 PM EDT Height 157.5 cm (5' 2 ) 10/07/2024 1:03 PM EDT Body Mass Index 24.84 10/07/2024 1:03 PM EDT Plan of Treatment Health Maintenance Due Date Last Done Comments Dental Prophylaxis 1948 Dental X-Ray: Bitewings 1948 Dental X-Ray: Full Mouth 1948 Alcohol/Substance Use Screening 1960 Dental Oral Exam 11/11/2022 05/13/2022 RSV Patients and Patients Aged 60 years or older (1 - 1-dose 75+ series) 08/19/2023 COVID-19 Vaccine (2023- season) 2023 08/23/2021, 08/23/2021, 02/07/2021, Additional history exists Influenza Vaccine (#1) 2024 , 01/22/2023, 01/17/2022, Additional history exists SDOH Screening 03/29/2025 03/29/2024 Depression Screening 10/07/2025 10/07/2024, 10/08/19 Tobacco Screening 10/07/2025 10/07/2024 Lipid Panel 04/13/2029 04/13/2024, 07/2022, 07/19/2021, Additional [...] Vaccine: 50+ Years Completed 02/05/2021, 04/05/2019, 06/11/2012 Hepatitis C Screening Completed 04/13/2024 CT Colonography [...] 9:40 AM EST Coronary artery disease involving [place] coronary artery of [place] heart, unspecified whether angina present LIPID PANEL, STANDARD Routine 04/13/2024 9:40 AM EST Coronary artery disease involving [place] coronary artery of [place] heart, unspecified whether angina present COMPREHENSIVE ORAL EVALUATION - NEW OR ESTABLISHED PATIENT Routine 05/13/2022 8:00 AM EST Periodontal disease HM COLONOSCOPY Routine 12/09/2017 from Last 3 Months or Most Recently Relevant to Health Maintenance Results * Hepatitis C Antibody with Reflex to HCV, RNA, Quantitative, Real-Time PCR (04/13/2024 9:40 AM EST) Hepatitis C Antibody Nonreactive Nonreactive [facility] Comment:Antibodies to HCV no t detected; does not exclude early acuteHCV infection. Blood Venous blood specimen / Unknown 04/13/2024 9:40 AM EST 04/13/2024 11:39 AM EST us Mandi Finley MD LAB BLOOD ORDERABLES Final Result [facility] [address] [place] [phone] * (ABNORMAL) Lipid Panel, Standard (04/13/2024 9:40 AM EST) Triglycerides 125 <150 mg/dL [facility] Comment:Desirable Triglyceri de: less than 150 mg/dLBorderline High Triglyceride 150-199 mg/dLHigh Triglyceride: 200-499 mg/dLVery High Triglyceride: greater than or equal to 5OO mg/dL Cholesterol 118 <200 mg/dL [facility] Comment:Desirable Cholestero l: less than 200 mg/dLBorderline High Cholesterol: 200-239 mg/dLHigh Cholesterol: greater than 239 mg/dL LDL Cholesterol Calculated 59 <100 mg/dL [facility] Comment:Desirable LDL: less than 100 mg/dLNear Optimal/Above Optimal LDL: 110- 129 mg/dLBorderline High LDL: 130-159 mg/dLHigh LDL: 160-189 mg/dLVery High LDL: greater than or equal to 190 mg/dL HDL Cholesterol 34(L) >40 mg/dL [facility] Comment:Desirable HDL: great er than 40 mg/dL Note: This HDL assay may give artificially low results in patients with liver disease. Blood Venous blood specimen / Unknown 04/13/2024 9:40 AM EST 04/13/2024 11:39 AM EST us Mandi Finley MD LAB BLOOD ORDERABLES Final Result Performing Organization Address City/State/[facility] Co de Phone Number [facility] [address] [place] [phone] * (ABNORMAL) Colonoscopy (12/09/2017) Colonoscopy Abnormal(A ) Normal us Not In System Provider HEALTH MAINTENANCE Final Result from Last 3 Months or Most Recently Relevant to Health Maintenance Insurance [address] [place] [id number] [facility] [address] [place] [id number] DENTAL - [facility] [address] [place] [phone] [address] [place] [phone] [place] [phone] Care Teams Probate Judge Relationship Specialty Start Date End Date Mandi Rojas MD [address] [place] [phone] PCP - General Internal Medicine 01/14/23
--- OUTSIDE RECORDS SUMMARY | 2024-11-30 09:44 | XMS_ITS | Encounter Summary ---
Author Organization [employer] Address [address] [facility] [address] [place] [address] Care Team Providers Care Professor Sculpture Name Role Phone Samia Ray MEAT SLICER Primary Care Provider Mandi Zayas MD Primary Care Provide r Encounter Details Date Type Department Care Team (Late st Contact Info) Description 06/07/2022 Abstract [facility] [address] [place] [address] [place], [place] [address] [place] [address] Social History Tobacco Use Types Packs/Day Years Used Date Smoking Tobacco: Former Cigarettes Q uit: 2010 Smokeless Tobacco: Never Alcohol Use Standard Drinks/Week [...] suspected to have Coronavirus/COVID-19? No / Unsure 06/07/2022 8:54 AM EST documented as of this encounter Plan of Treatment Not on file documented as of this encounter Visit Diagnoses Not on filedocumented in this encounter Additional Health Concerns Assessment Noted Time PHQ-9 Depression Total Score: 3 04/09/19 23 1:11 PM EST documented as of this encounter Care Teams Professor Sculpture Relationship Specialty Start Date End Date Samia Ray FNP PCP - General Family Medicine 04/09/22 01/13/23 Mandi Rojas MD [address] [place] [phone] PCP - General Internal Medicine 01/14/23 documented as of this encounter
== END ==
LOC: HO.CARD 09:18
PROVIDERS: Visit Provider Internal Medicine
DX: R06.02 Shortness of breath (principal)
CPT/HCPCS: 93306

== ENCOUNTER → 2024-11-30 09:36 | Outpatient (BNV) | payer OTHER, SELFPAY | PROVIDERS: Visit Provider Internal Medicine | DX: I51.89 Other ill-defined heart diseases (principal); I36.1 Nonrheumatic tricuspid (valve) insufficiency; R06.02 Shortness of breath | CPT/HCPCS: 93306 ==